=== PATIENT | male | born 1995 | race Hispanic/Latino ===

== ENCOUNTER 2023-09-14 07:57 | Emergency (ER) | payer OTHER ==
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
[2023-09-14 13:03] VITALS: TEMP 98.2
[2023-09-14 13:05] VITALS: BP 129/70; O2SAT 99
== END 2023-09-14 09:27 | disposition home or self-care (01) ==
LOC: ER 07:57
DX: S09.90XA Unspecified injury of head, initial encounter (principal); V49.50XA Passenger injured in collision with unspecified motor vehicles in traffic accident, initial encounter
CPT/HCPCS: 70450